=== PATIENT | female | born 1970 | race Caucasian/White ===

== ENCOUNTER → 2020-07-26 | Outpatient (CLI) | payer OTHER ==
[2020-07-27 01:29] LABS: African American GFR (CKD) 60.6 (60.0-200.0); Anion Gap 10.2 mmol/L (4.00-12.00); Calcium 9.8 mg/dL (8.7-10.3); Carbon Dioxide 26.8 mmol/L (21.6-31.8); Non-African American GFR(CKD) 52.3 (60.0-200.0); Potassium 4.1 mmol/L (3.5-5.5)
== END | disposition home or self-care (01) ==
LOC: LABWHC1 15:42
PROVIDERS: ATTEND Internal Medicine Interventional Cardiology
DX: I10 Essential (primary) hypertension (principal)
CPT/HCPCS: 36415; 80048